=== PATIENT | male | born 1980 | race Caucasian/White ===

== ENCOUNTER 2020-05-14 18:04 | Emergency (ER) | payer BC, OTHER ==
--- NOTE | 2020-05-14 19:49 | EDM.PDOC ---
ED HPI GENERAL MEDICAL PROBLEM - General Chief Complaint: General Stated Complaint: softball to left jaw Time Seen by Provider: 05/14/20 18:10 Source of Information: Reports: Patient History Limitations: Reports: No Limitations - History of Present Illness INITIAL COMMENTS - FREE TEXT/NARRATIVE: Hit in left side of jaw with softball Pain in jaw area and TMJ's Teeth feel like dont line up in back Onset: Today, Sudden Location: Reports: Face Improves with: Reports: Immobilization Worsens with: Reports: Movement Context: Reports: Trauma left and right jaw Pain Score (Numeric/FACES): 8 - Related Data Allergies Allergy/AdvReac Type Severity Reaction Status Date / Time Penicillins Allergy Other Verified 05/14/20 18:05 Home Meds: Home Meds . [No Known Home Meds] 05/14/20 [History] Past Medical History Neurological History: Reports: Concussion - Past Surgical History HEENT Surgical History: Reports: Tonsillectomy Musculoskeletal Surgical History: Reports: Other (See Below) Other Musculoskeletal Surgeries/Procedures:: right hand surgery for tendon repair Social & Family History - Tobacco Use Smoking Status *Q: Current Every Day Smoker Years of Tobacco use: 20 Packs/Tins Daily: 0.5 - Caffeine Use Caffeine Use: Reports: Coffee, Soda - Recreational Drug Use Recreational Drug Use: No ED ROS GENERAL - Review of Systems Review Of Systems: See Below HEENT: Reports: Other (Jaw pain) ED EXAM, GENERAL - Physical Exam Exam: See Below Exam Limited By: No Limitations General Appearance: Alert, Mild Distress Eye Exam: Bilateral Eye: EOMI, PERRL Ears: Normal TMs Nose: Normal Inspection Throat/Mouth: Other (Bilateral TMJ's tender Increased pain with ovement Tender with palpation across mandible) Neck: Non-Tender Course - Vital Signs Last Recorded V/S: Last Vital Signs Temp 98.4 F 05/14/20 18:06 Pulse 99 05/14/20 18:06 Resp 16 05/14/20 18:06 BP 124/99 H 05/14/20 18:06 Pulse Ox 100 05/14/20 18:06 - Orders/Labs/Meds Orders: Active Orders 24 hr Category Date Time Status Maxillofacial w/o CM [Max Facial Sinus wo Cont] [CT] Exams 05/14/20 18:16 Taken Stat - Re-Assessments/Exams Free Text/Narrative Re-Assessment/Exam: 05/14/20 19:47 CT: Negative for fracture or dislocation Departure - Departure Time of Disposition: 20:00 Disposition: Home, Self-Care 01 Clinical Impression: Contusion of mandibular joint area Qualifiers: Encounter type: initial encounter Qualified Code(s): S00.83XA - Contusion of other part of head, initial encounter - Discharge Information *PRESCRIPTION DRUG MONITORING PROGRAM REVIEWED*: Not Applicable *COPY OF PRESCRIPTION DRUG MONITORING REPORT IN PATIENT FORREST: Not Applicable Instructions: Facial or Scalp Contusion, How to Use Cold Therapy, Jaw Contusion Referrals: PCP,None [Primary Care Provider] - Additional Instructions: Ice as needed Diet as tolerated Tylenol or Motrin as needed Follow up in clinic Sepsis Event Note (ED) - Evaluation Sepsis Screening Result: No Definite Risk - Focused Exam Vital Signs: Vital Signs Temp Pulse Resp BP Pulse Ox 05/14/20 18:06 98.4 F 99 16 124/99 H 100 - My Orders Last 24 Hours: My Active Orders 05/14/20 18:16 Maxillofacial w/o CM [Max Facial Sinus wo Cont] [CT] Stat - Assessment/Plan Last 24 Hours: My Active Orders 05/14/20 18:16 Maxillofacial w/o CM [Max Facial Sinus wo Cont] [CT] Stat
== END 2020-05-14 20:00 | disposition home or self-care (01) ==
LOC: LL.ED 18:04
DX: S00.83XA Contusion of other part of head, initial encounter (principal); F17.210 Nicotine dependence, cigarettes, uncomplicated; Z88.0 Allergy status to penicillin; W21.07XA Struck by softball, initial encounter; Y93.64 Activity, baseball
CPT/HCPCS: 70486; 99283-25